=== PATIENT | male | born 1955 | race Caucasian/White ===

== ENCOUNTER 2019-06-08 14:58 | Emergency (ER) | payer OTHER, SELFPAY ==
--- NOTE | ~2019-06-08 | XR_ITS ---
EXAMINATION: XR ankle RT min 3V, XR heel RT min 2V, XR foot RT min 3V EXAM DATE: 06/08/2019 15:31 (accession [id number]), 06/08/2019 15:32 (accession [id number]), 06/08/2019 15:32 (accession [id number]) INDICATION: Initial encounter following injury, with pain of the left ankle, foot, heel TECHNIQUE: Right foot dorsoplantar, lateral and oblique projections obtained and reviewed. Right ank le frontal, lateral and oblique projections obtained and reviewed. Dorsal plantar, lateral projectio ns of the right calcaneus. There are no prior studies for comparison. FINDINGS: Boehler's angle is decreased. There is acute mildly displaced fracture extending horizontal ly through the calcaneus, with discrete cortical break identified posteriorly and also inferiorly. Th ere is also fracture line extending into the subtalar joint. Closed, posttraumatic fracture(s). The re is overlying soft tissue swelling. No other acute findings. Right metatarsal bones unremarkable. The right ankle mortise appears intact. IMPRESSION: Right calcaneal acute comminuted fracture with decreased Boehler's angle. Reviewed, dictated and finalized at location A. IMPRESSION: Right calcaneal acute comminuted fracture with decreased Boehler's angle. IMPRESSION: Right calcaneal acute comminuted fracture with decreased Boehler's angle.
--- NOTE | ~2019-06-08 | XR_ITS ---
EXAMINATION: XR lumbar spine 2-3V EXAM DATE: 06/08/2019 15:46 INDICATION: Initial encounter following injury, with pain of the lower back. TECHNIQUE: Lumber spine frontal, lateral, lateral L5-S1 projections for interpretation. There is no prior study for comparison. FINDINGS: There are no acute fractures identified. The vertebral bodies are aligned in the AP dimensi on. Vertebral body heights relatively well-maintained. There is mild to moderate lumbar facet arthrop athy. Sacrum, sacroiliac joints, sacral arcuate lines are intact. Paraspinal IMPRESSION: Mild to moderate facet arthropathy. Reviewed, dictated and finalized at location A.
[2019-06-08 14:54] VITALS: BP 162/74; PULSE 73; RESP 14; TEMP 36.8; O2SAT 97
--- NOTE | 2019-06-08 15:20 | ED.LOWEXIN ---
HPI - Extremity Injury (Lower) General Chief Complaint: Extremity Injury, Lower Stated Complaint: right ankle pain Time Seen by Provider: 06/08/19 15:17 Source: patient Mode of arrival: EMS Limitations: no limitations History of Present Illness HPI Narrative: The pt is a 64 y/o male who presents to the ED, via EMS, c/o right ankle pain secondary to a fall. Pt states that he was putting something in the attic in his garage on a ladder when he fell onto his right side. Pt states that he fell 4.5-5 feet and landed on his right side. He reports right ankle pain, but denies right ankle and right groin numbness/tingling, head injury, and LOC. Pt notes he has a PMHx of HTN, HLD, COPD, and right wrist fracture. Pt also had a bronchoscopy and had his lungs cleaned out. complaint: ankle injury Injury: Right: ankle Type of Injury: other (Fall) Place: home Associated symptoms: other (Right ankle pain) Other symptoms: none Related Data Home Medications Medication Instructions Recorded Confirmed albuterol sulfate [ProAir HFA] 1 inh INHALATION QID 06/08/19 06/08/19 levothyroxine 75 mcg PO DAILY 06/08/19 lisinopril 10 mg PO DAILY 06/08/19 sertraline 100 mg PO DAILY 06/08/19 simvastatin 20 mg PO DAILY 06/08/19 Allergies Allergy/AdvReac Type Severity Reaction Status Date / Time No Known Allergies Allergy Verified 06/08/19 15:01 Review of Systems Review of Systems: All systems reviewed & are unremarkable except as noted in HPI and below Musculoskeletal: Musculoskeletal: Reports arthralgias (Right ankle) Neurologic: Denies numbness (Right ankle, right groin), Denies tingling (Right ankle, right groin) and Denies other (Head injury, LOC) [facility] Past Medical History Medical History (Updated 06/08/19 @ 17:45 by Presley Zamarripa MD) COPD (chronic obstructive pulmonary disease) HLD (hyperlipidemia) HTN (hypertension) Right wrist fracture Surgical History Surgical History (Updated 06/08/19 @ 15:35 by Rad Conte) History of bronchoscopy With lung cleaning Social History Social History (Updated 06/08/19 @ 15:27 by Rad Conte) Smoking status: Former smoker Exam Narrative: Exam Narrative: GENERAL: Well-appearing, well-nourished, and in no acute distress. HEAD: Normocephalic, atraumatic. ENT: Mucous membranes moist. HEART: Regular rate and rhythm. Normal peripheral pulses. EXTREMITIES: Focused exam right lower extremity shows swelling and tenderness the calcaneus and medial aspect of the ankle. Limited range of motion due to pain. No tenderness of the knee or hip on the right side. Right hand was is without deformity or tenderness. Normal range of motion the right hand and wrist. Back: No midline tenderness of thoracic or lumbar spine. SKIN: Warm, dry, no rash. NEURO: Alert and oriented x3.. Course Consultations Consultation #1: Discussed case with Dr. Baron, recommends short-leg posterior splint with an excessive amount of padding. He will follow up on 06/10/2019. Date: 06/08/19 Time: 16:50 Vital Signs Vital signs: Vital Signs Temperature 98.2 F 06/08/19 14:54 Pulse Rate 73 06/08/19 14:54 Respiratory Rate 14 06/08/19 14:54 Blood Pressure 162/74 H 06/08/19 14:54 Pulse Oximetry 97 06/08/19 14:54 Temperature 98.2 F 06/08/19 14:54 Pulse Rate 94 06/08/19 15:58 Respiratory Rate 14 06/08/19 14:54 Blood Pressure 147/67 H 06/08/19 15:58 Pulse Oximetry 95 06/08/19 15:58 Procedures Orthopedic Splinting/Casting Injury #1: Splinting/Casting Date: 06/08/19 Splinting/Casting Time: 17:25 Side: right Lower Extremity Injury Location: lower leg OCL: short leg Pre-Procedure Neuro Vascular Exam: normal Post-Procedure Neuro Vascular Exam: normal Other Orthopedic Equipment: crutches MDM - Extremity Injury (Lower) Imaging Data Radiologist's impression: ITS Impressions Ankle X-Ray 06/08/19 15:35 IMPRESSION: Otis
[2019-06-08 15:58] VITALS: BP 147/67; PULSE 94; O2SAT 95
[2019-06-08 18:15] VITALS: BP 140/70; PULSE 80; RESP 20; O2SAT 100
== END 2019-06-08 18:17 | disposition home or self-care (01) ==
PROVIDERS: Emergency Provider Emergency Medicine
DX: S92.001A Unspecified fracture of right calcaneus, initial encounter for closed fracture (principal); J44.9 Chronic obstructive pulmonary disease, unspecified; E78.5 Hyperlipidemia, unspecified; I10 Essential (primary) hypertension; Z87.891 Personal history of nicotine dependence; W10.9XXA Fall (on) (from) unspecified stairs and steps, initial encounter
CPT/HCPCS: 29515; 72100; 73610; 73630; 73650; 99284

== ENCOUNTER 2020-10-05 02:19 | Day surgery (SDC) | payer BC, SELFPAY ==
[2020-09-25 15:12] VITALS: BMI 33.5
[2020-10-05 11:18] VITALS: BP 140/80; PULSE 78; RESP 18; TEMP 36.5; O2SAT 98; BMI 32.9
[2020-10-05] MEDS: LACTATED RINGERS 1,000 ML 150 ML IV CONT (11:43)
[2020-10-05 11:46] LABS: Glucose Point of Care 130 mg/dl (65-105)
--- NOTE | 2020-10-05 11:48 | WPDANESEPPF ---
Anes - Initial Pre Proc Eval Procedure: Operation Date: 10/05/20 12:00 Proposed Procedures p Screening Colonoscopy - Allen Jimenez MD Date/Time: 10/05/20 11:48 Surgeon: Allen Jimenez MD Pre Op Diagnosis: neoplasm screening Patient Data Age: 65 Gender: M Height: 1.7 m Weight: 95.3 kg Last Vital Signs Temp 36.5 C 10/05/20 11:18 Pulse 78 10/05/20 11:18 Resp 18 10/05/20 11:18 BP 140/80 10/05/20 11:18 Pulse Ox 98 10/05/20 11:18 Allergies Allergy/AdvReac Type Severity Reaction Status Date / Time No Known Allergies Allergy Verified 10/05/20 11:25 Home Medications Medication Instructions Recorded Confirmed Type lisinopril 10 mg PO DAILY 06/08/19 10/05/20 History sertraline 100 mg PO DAILY 06/08/19 10/05/20 History simvastatin 20 mg PO DAILY 06/08/19 10/05/20 History montelukast 10 mg tablet 10 mg PO DAILY #30 tablet 08/05/20 10/05/20 Rx metformin 500 mg tablet,extended 2,000 mg PO QPM #120 tablet 08/24/20 10/05/20 Rx release 24hr Spiriva Respimat 2.5 mcg/actuation 2 inh INHALATION QAM #4 g NS 09/01/20 10/05/20 Rx solution for inhalation levothyroxine 75 mcg tablet 75 mcg PO DAILY #90 tablet 09/01/20 10/05/20 Rx Laboratory Tests 10/05/20 11:33 POC Capillary Glucose 130 mg/dl H mg/dl (65-105) Patient hx anesthesia problems: none Family hx anesthesia problems: none PMFSH Past Medical History Medical History Anxiety Calcaneus fracture, right Colon cancer screening COPD (chronic obstructive pulmonary disease) Diabetes mellitus Encounter to establish care Hearing loss Heart disease High cholesterol HLD (hyperlipidemia) HTN (hypertension) Hx of transient ischemic attack (TIA) Hypothyroidism TIFFANY (obstructive sleep apnea) Peroneal tendinitis of right lower extremity Plantar fasciitis of right foot Right wrist fracture Screening for prostate cancer Seasonal allergies Thyroid disorder Urinary frequency Vision abnormalities Surgical History Surgical History History of bronchoscopy With lung cleaning Family History Family History Father Lung cancer Hypertension Heart disease Mother Depression Anxiety Sibling Hypertension Thyroid disease Grandparent Anxiety Depression Heart disease Other Diabetes mellitus Malignant neoplasm Social History Social History Smoking packs per day: 1.5 Smoking cigarettes per day: 30.0 Years smoked: 30 Smoking pack-years: 45.00 Tobacco type: cigarettes Smoking end date: 03/06/05 Alcohol intake: current Alcohol use details: Occasional, 0-2 per week Substance use: never Substance use type: does not use Additional occupation/education comments: [employer] Spiritual care concerns: No Anes - Eval Final PreProcedure Day of Procedure 10/05/20 11:48 Patient weight: obese Heart: regular rate and rhythm Lungs: clear to auscultation Airway: Mallampati scale class 1 Neurological: alert and oriented Last oral intake: >/= 8 hours ASA classification: III Emergent: no Anesthetic plan: proceed Anesthesia type and monitoring: general GIVS and standard monitoring Informed Consent: The patient's anesthetic plan and its attendant risks and benefits were discussed with the patient/family/POA. Questions were solicited and answers provided to the satisfaction of the patient/family/POA.
--- NOTE | 2020-10-05 11:51 | PM.HPGS ---
History of Present Illness History of Present Illness Consent: Risks, benefits, and alternatives have been discussed and questions answered. Patient agrees to proceed with procedure. Chief complaint: neoplasm screening Narrative: Sav Cosby is a 65 year old male referred for colon cancer screening Review of Systems Review of Systems: All systems reviewed & are unremarkable except as noted in HPI and below PMFSH Past Medical History Medical History Anxiety Calcaneus fracture, right Colon cancer screening COPD (chronic obstructive pulmonary disease) Diabetes mellitus Encounter to establish care Hearing loss Heart disease High cholesterol HLD (hyperlipidemia) HTN (hypertension) Hx of transient ischemic attack (TIA) Hypothyroidism TIFFANY (obstructive sleep apnea) Peroneal tendinitis of right lower extremity Plantar fasciitis of right foot Right wrist fracture Screening for prostate cancer Seasonal allergies Thyroid disorder Urinary frequency Vision abnormalities Surgical History Surgical History History of bronchoscopy With lung cleaning Family History Family History Father Lung cancer Hypertension Heart disease Mother Depression Anxiety Sibling Hypertension Thyroid disease Grandparent Anxiety Depression Heart disease Other Diabetes mellitus Malignant neoplasm Social History Social History Smoking packs per day: 1.5 Smoking cigarettes per day: 30.0 Years smoked: 30 Smoking pack-years: 45.00 Tobacco type: cigarettes Smoking end date: 03/06/05 Alcohol intake: current Alcohol use details: Occasional, 0-2 per week Substance use: never Substance use type: does not use Additional occupation/education comments: [employer] Spiritual care concerns: No Meds Home Medications and Allergies Home Medications Medication Instructions Recorded Confirmed Type lisinopril 10 mg PO DAILY 06/08/19 10/05/20 History sertraline 100 mg PO DAILY 06/08/19 10/05/20 History simvastatin 20 mg PO DAILY 06/08/19 10/05/20 History montelukast 10 mg tablet 10 mg PO DAILY #30 tablet 08/05/20 10/05/20 Rx metformin 500 mg tablet,extended 2,000 mg PO QPM #120 tablet 08/24/20 10/05/20 Rx release 24hr Spiriva Respimat 2.5 mcg/actuation 2 inh INHALATION QAM #4 g NS 09/01/20 10/05/20 Rx solution for inhalation levothyroxine 75 mcg tablet 75 mcg PO DAILY #90 tablet 09/01/20 10/05/20 Rx Allergies Allergy/AdvReac Type Severity Reaction Status Date / Time No Known Allergies Allergy Verified 10/05/20 11:25 Vital Signs Vital Signs - 24 hr 10/05/20 11:18 Temperature 36.5 C Pulse Rate 78 Respiratory Rate 18 Blood Pressure 140/80 Pulse Oximetry 98 Exam Const: General: alert Orientation/consciousness: patient oriented x3 Resp: Auscultation: clear to auscultation bilaterally Cardio: Rhythm: regular rhythm GI: GI Palp: Yes Soft to palpation and No Tenderness to palpation present (GI) Neuro: General: patient oriented x3 Assessment and Plan Assessment and plan (1) Colon cancer screening: Code(s): Z12.11 - Encounter for screening for malignant neoplasm of colon Status: Acute Assessment and Plan: Colonoscopy with possible biopsy or polypectomy or cautery or injection of substances.
[2020-10-05 12:20] VITALS: BP 104/74; PULSE 72; RESP 15; O2SAT 98
[2020-10-05 12:30] VITALS: BP 114/60; PULSE 70; RESP 16; O2SAT 98
[2020-10-05 12:40] VITALS: BP 134/78; PULSE 74; RESP 16; O2SAT 98
== END 2020-10-05 12:51 | disposition home or self-care (01) ==
PROVIDERS: PCP Nurse Practitioner Family; Visit Provider Internal Medicine Gastroenterology
PROC: 0DJD8ZZ Inspection of Lower Intestinal Tract, Via Natural or Artificial Opening Endoscopic (ICD-10-PCS; CPT 45378; principal; 2020-10-05 12:00)
DX: Z12.11 Encounter for screening for malignant neoplasm of colon (principal); K57.30 Diverticulosis of large intestine without perforation or abscess without bleeding; I11.9 Hypertensive heart disease without heart failure; E78.5 Hyperlipidemia, unspecified; G47.33 Obstructive sleep apnea (adult) (pediatric); F41.9 Anxiety disorder, unspecified; J44.9 Chronic obstructive pulmonary disease, unspecified; Z86.73 Personal history of transient ischemic attack (TIA), and cerebral infarction without residual deficits; E03.9 Hypothyroidism, unspecified; Z79.84 Long term (current) use of oral hypoglycemic drugs; Z79.51 Long term (current) use of inhaled steroids; Z87.891 Personal history of nicotine dependence; E66.9 Obesity, unspecified; Z68.32 Body mass index [BMI] 32.0-32.9, adult
CPT/HCPCS: 45378; 82948; J7120

== ENCOUNTER 2022-03-03 18:58 | Emergency (ER) | payer BC, SELFPAY ==
[2022-03-03 19:29] VITALS: BP 145/64; PULSE 73; RESP 16; TEMP 36.4; O2SAT 98
--- NOTE | 2022-03-05 12:52 | ED.GENADULT ---
HPI - General Adult General Chief complaint: Upper Respiratory Infection Stated complaint: sorethroat,bilateral ear pain History of Present Illness HPI narrative: 67 y/o male. PMHx LAURA, Hypothyroid, COPD, HTN, Dyslipidemia, TIFFANY. Presents to [facility] today with acute complaints of bilateral ear pain, sore throat, and productive cough for > 1 week. No fevers. No dysphagia, involuntary drooling. No chest pain, palpitations, wheezing, edema. Intermittent dyspnea, no hemoptysis. Denies GI upset N/V/D. Related Data Allergies Allergy/AdvReac Type Severity Reaction Status Date / Time No Known Allergies Allergy Verified 03/03/22 19:26 Review of Systems Review of Systems: CONSTITUTIONAL: Denies fever, chills, sweats. EYES: Denies visual changes, redness, discharge. ENT: Positive rhinorrhea, congestion, sore throat, otalgia. CARDIOVASCULAR: Denies chest pain, palpitations, edema. RESPIRATORY: Positive dyspnea, cough. No wheezing. GASTROINTESTINAL: Denies abdominal pain, nausea, vomiting, diarrhea. All other systems have been reviewed: Unless noted remaining ROS Negative. [facility] Past Medical History Medical History (Updated 03/04/22 @ 00:00 by Background Daemon) Anxiety BMI 34.0-34.9,adult BMI 35.0-35.9,adult Calcaneus fracture, right Colon cancer screening COPD (chronic obstructive pulmonary disease) Diabetes mellitus Encounter to establish care Fatigue Hearing loss Heart disease High cholesterol HLD (hyperlipidemia) HTN (hypertension) Hx of transient ischemic attack (TIA) Hypothyroidism TIFFANY (obstructive sleep apnea) Peroneal tendinitis of right lower extremity Plantar fasciitis of right foot Right wrist fracture Screening for prostate cancer Seasonal allergies Thyroid disorder Urinary frequency Vision abnormalities Surgical History Surgical History History of bronchoscopy With lung cleaning Family History Family History Father Lung cancer Hypertension Heart disease Mother Depression Anxiety Sibling Hypertension Thyroid disease Grandparent Anxiety Depression Heart disease Other Diabetes mellitus Malignant neoplasm Social History Social History Smoking packs per day: 1.5 Smoking cigarettes per day: 30.0 Years smoked: 30 Smoking pack-years: 45.00 Smoking status: Former smoker Tobacco type: cigarettes Smoking end date: 03/06/05 Alcohol intake: current Alcohol use details: Occasional, 0-2 per week Substance use: never Substance use type: does not use Additional occupation/education comments: [employer] Spiritual care concerns: No Exam Narrative: GENERAL: This is a well-nourished, well-developed adult, in no apparent distress. HEAD: normocephalic. EYES: Sclera clear/white. EARS: External ears normal, auditory canals clear and without drainage, TMs erythematous and bulging bilaterally. NOSE: External nose normal. Positive Rhinorrhea, no obstruction, nares patent. THROAT: Mucous membranes moist, posterior pharynx erythematous. No exudates. Uvula midline, no gross swelling, palate soft. NECK: Neck supple, non-tender without lymphadenopathy, masses or thyromegaly. No meningeal signs. CARDIOVASCULAR: Regular rate and rhythm without murmurs, gallops, or rubs. RESPIRATORY: Upper airway rhonchi, cleared w/cough. Breath sounds equal bilaterally. No wheezes, rales. GASTROINTESTINAL: Abdomen soft, non-tender, nondistended. Bowel sounds are active. No guarding. SKIN: warm, intact with no suspicious lesions or rash, good texture and turgor. NEURO: Alert, active, and age appropriate. No focal neurologic deficits. Course Course Level of Care: Express Care Visit Vital Signs Vital signs: Vital Signs Temperature 36.4 C 03/03/22 19:29 Pulse Rate 73 03/03/22 19:29
== END 2022-03-03 20:07 | disposition home or self-care (01) ==
PROVIDERS: Emergency Provider Nurse Practitioner Adult Health; PCP Family Medicine
DX: J06.9 Acute upper respiratory infection, unspecified (principal); Z87.891 Personal history of nicotine dependence; J44.9 Chronic obstructive pulmonary disease, unspecified; E11.9 Type 2 diabetes mellitus without complications; Z79.84 Long term (current) use of oral hypoglycemic drugs; E78.00 Pure hypercholesterolemia, unspecified; I10 Essential (primary) hypertension; E78.5 Hyperlipidemia, unspecified; E03.9 Hypothyroidism, unspecified
CPT/HCPCS: 87081; 87804; 87880; 99213; G0463